=== PATIENT | male | born 1945 | race American Indian/Alaskan Native ===

== ENCOUNTER 2021-04-06 08:10 | Day surgery (SDC) | payer MEDICARE ==
[~2021-04-06 08:10] MED LIST: BACTERIOSTATIC SODIUM CHLORIDE 0.9% 30 ML VIAL INFILTRATI ONE; SODIUM CHLORIDE 0.9% 1000 ML 1,000 ML IV SCH
[2021-04-06] MEDS ORDERED: HEPARIN 10,000 UNITS/10 ML VIAL ONE (08:11)
[2021-04-06] MEDS ORDERED: PROTAMINE SULFATE 50 MG/5 ML INJ ONE (08:11)
[2021-04-06] MEDS ORDERED: LIDOCAINE (1%) 10 MG/1 ML VIAL 20 ML MDV ONE (08:11)
[2021-04-06] MEDS ORDERED: BUPIVACAINE/PF (0.25%) 2.5 MG/ML 30 ML VIAL INFILTRATI ONE (08:11)
[2021-04-06] MEDS ORDERED: THROMBIN (RECOMBINANT) 5,000 UNIT VIAL TP ONE ×2 (09:08→11:48)
--- NOTE | 2021-04-06 09:11 | Anesthesia Consultation ---
Anesthesia Consult and Med Hx Date of service: 04/06/21 - Airway Anesthetic Teeth Evaluation: Good ROM Head & Neck: Inadequate (restricted extension) Mental/Hyoid Distance: Adequate Mallampati Class: Class III Intubation Access Assessment: Possibly Difficult - Pre-Operative Health Status ASA Pre-Surgery Classification: ASA4 Proposed Anesthetic Plan: General - Pulmonary Hx Smoking: No Hx Respiratory Symptoms: No Hx Sleep Apnea: No - Cardiovascular System Hx Hypertension: Yes Hx Coronary Artery Disease: Yes (diastolic heart failure, no mention of systolic heart failure) Hx Heart Attack/AMI: No Hx Percutaneous Transluminal Coronary Angioplasty (PTCA): Yes (>5yrs ago) Hx Cardia Arrhythmia: Yes (parosyxmal a-fib; last dose eliquis 04/01/21) Hx Pacemaker: No Hx Internal Defibrillator: No - Central Nervous System Hx Seizures: Yes (last seizure 4yrs ago; took keppra this morning) 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 Preop cardiology eval on chart.
[2021-04-06 09:19] LABS: Hematocrit 33.8 % (35.5-45.6); Hemoglobin 11.6 gm/dl (11.8-15.2); Mean Corpuscular HGB Conc 34 % (32-34); Mean Corpuscular Volume 85 fl (84-94); Platelet Count 219 K/mm3 (140-440); Red Blood Count 3.97 M/mm3 (3.65-5.03); Red Cell Distribution Width 19.4 % (13.2-15.2)
[2021-04-06] MEDS ORDERED: ceFAZolin/STERILE WATER 2 GM/20 ML SYRINGE IV NR (09:28)
[2021-04-06] MEDS ORDERED: fentaNYL 100 MCG/2 ML INJ IV PRN (09:30)
[2021-04-06] MEDS ORDERED: ONDANSETRON 4 MG/2 ML INJ IV PRN (09:30)
[2021-04-06] MEDS ORDERED: HYDROcodone/ACETAMINOPHEN 5-325 MG TAB PO PRN (09:30)
[2021-04-06] MEDS ORDERED: fentaNYL 100 MCG/2 ML INJ ONE (09:32)
[2021-04-06] MEDS ORDERED: propofoL 200 MG/20 ML VIAL IV ONE ×2 (09:32→10:38)
[2021-04-06] MEDS ORDERED: LIDOCAINE MPF (2%) 20 MG/1 ML VIAL 5 ML ONE (09:32)
[2021-04-06 09:34] LABS: Calcium 9.4 mg/dL (8.4-10.2)
[2021-04-06] MEDS ORDERED: ePHEDrine SULFATE 50 MG/1 ML INJ ONE (10:07)
[2021-04-06] MEDS ORDERED: PHENYLEPHRINE/NS 1,000 MCG/10 ML SYRINGE (OR USE) IV ONE (10:12)
[2021-04-06] MEDS ORDERED: SODIUM CHLORIDE 0.9% IRR 1,500 ML BOTTLE IR ONE (11:47)
[2021-04-06] MEDS ORDERED: HEPARIN 10,000 UNITS/10 ML VIAL IV ONE (11:47)
[2021-04-06] MEDS ORDERED: ONDANSETRON 4 MG/2 ML INJ ONE (12:45)
--- NOTE | 2021-04-06 13:08 | Post Operative Note ---
Date of procedure: 04/06/21 Pre-op diagnosis: ESRD Post-op diagnosis: same Procedure: Left Femoral AV Loop Graft Insertion Anesthesia: GETA Surgeon: JOHANNE PAUL Estimated blood loss: other (25ml) Condition: stable Disposition: PACU
[2021-04-06] MEDS ORDERED: oxyCODONE /ACETAMINOPHEN 5-325MG TAB PO PRN (13:10)
--- NOTE | 2021-04-06 13:10 | Short Stay Summary ---
Short Stay Documentation Date of service: 04/06/21 - History H&P: obtained from office Past Medical History: atrial fib, CAD, ESRD, hypertension - Allergies and Medications Current Medications: Allergies No Known Allergies Allergy (Verified 03/23/21 13:29) Home Medications Medication Instructions Recorded Confirmed Last Taken Type Apixaban [Eliquis] 2.5 mg PO BID 05/18/18 04/06/21 04/01/21 History AtorvaSTATin [Lipitor] 20 mg PO QHS 05/18/18 03/23/21 04/05/21 History Brimonidine Tartrate [Brimonidine 1 drop OU BID 05/18/18 03/23/21 04/05/21 History Tartrate 0.2%] Metoprolol Tartrate 50 mg PO PRN PRN 05/18/18 03/23/21 04/05/21 History levETIRAcetam [Keppra ORAL LIQ] 750 mg PO BID 05/18/18 04/06/21 04/06/21 03:00 History Cinacalcet [Sensipar] 60 mg PO QDAY 03/23/21 04/06/21 04/05/21 History Folic Acid/Vit B Complex and C 800 mcg PO DAILY 03/23/21 03/23/21 04/05/21 History [Dialyvite 800 Chewable Wafer] Insulin NPH/Regular [Novolin 70/30] 10 unit SQ QAM 03/23/21 03/23/21 04/05/21 History Timolol Maleate/Pf [Timolol 1 each OU BID 03/23/21 03/23/21 04/05/21 History Maleate 0.5% Eye Drop] Active Medications Hydrocodone Bitart/Acetaminophen (Hydrocodone/Acetaminophen 5-325 Mg Tab) 1 each PO ONCE PRN PRN Reason: Pain, Moderate (4-6) Stop: 04/06/21 18:00 Cefazolin Sodium (Cefazolin/Sterile Water 2 Gm/20 Ml Syringe) 2 gm IV PREOP NR Stop: 04/06/21 20:00 Fentanyl (Fentanyl 100 Mcg/2 Ml Inj) 50 mcg IV Q5MIN PRN PRN Reason: Pain , Severe (7-10) Stop: 04/06/21 18:00 Sodium Chloride (Nacl 0.9% 1000 Ml) 1,000 mls @ 42 mls/hr IV DIRECT AFSHIN Stop: 04/06/21 23:59 Last Admin: 04/06/21 09:00 Dose: 42 mls/hr Documented by: Ondansetron HCl (Ondansetron 4 Mg/2 Ml Inj) 4 mg IV ONCE PRN PRN Reason: Nausea And Vomiting Stop: 04/06/21 18:00 - Physical exam General appearance: no acute distress Lungs: Normal air movement Heart: Regular rate Extremities: no ischemia - Hospital course Hospital course: the patient was taken to the operating room and had a left leg av graft insertion performed. please refer to the operative note concerning details of the procedure. the patient tolerated the procedure well and was discharged home in stable condition. - Disposition Condition at discharge: Stable Disposition: 01 HOME / SELF CARE / HOMELESS Short Stay Discharge Plan Follow up with: MOI VANG MD [Primary Care Provider] - 7 Days
--- NOTE | 2021-04-06 14:33 | Operative Report ---
DATE OF SURGERY: 04/06/2021 STAFF SURGEON: Dr. Geoff Le. PREOPERATIVE DIAGNOSIS: End-stage renal disease. POSTOPERATIVE DIAGNOSIS: End-stage renal disease. PROCEDURE PERFORMED: Left femoral arteriovenous loop graft insertion. COMPLICATIONS: None. ESTIMATED BLOOD LOSS: 25 mL. ANESTHESIA: General. INDICATIONS FOR PROCEDURE: This is a 75-year-old gentleman with end-stage renal disease, on hemodialysis, who is in need of a subsequent access due to his current access having issues with prolonged bleeding and cannulation issues and is unable to be salvaged. Therefore, the patient was suited to undergo access placed in the lower extremity. The patient was noted to have adequate arterial perfusion to the left leg and therefore was scheduled for a left femoral loop graft insertion. The patient was explained the risks, benefits and alternative of procedure, expressed understanding and wished to proceed. DESCRIPTION OF PROCEDURE: After appropriate consent was obtained, the patient was brought back to the operating room and placed on the operating table in supine position. The patient was given appropriate medication for general anesthesia, had LMA placed without difficulty. The left lower extremity was prepped and draped in the usual sterile fashion with ChloraPrep. Appropriate preoperative antibiotics were administered, and appropriate timeout was performed indicating the correct patient, procedure, and site of procedure. We then began the operation by making a longitudinal incision in the proximal medial thigh. This was carried through the subcutaneous tissue with combination of blunt dissection and electrocautery. The fascia overlying the sartorius muscle was incised. The sartorius muscle was then retracted laterally, which allowed us to expose the femoral vessels, femoral arteries, SFA and SFV were both found to be suitable for arterial inflow and venous outflow. These were both mobilized for appropriate distance both proximally and distally and controlled with a vessel loop. We then proceeded to make a counterincision in the mid thigh, was carried through the subcutaneous tissue with a combination of blunt dissection and electrocautery. We then proceeded to make a subcutaneous tunnel in a loop fashion bringing through a 6 mm bovine graft. Care was taken to avoid any twisting or kinking of the graft. The patient was then given 5000 units of unfractionated heparin. After appropriate timeout elapsed, the graft was spatulated. Vascular clamps were placed on the superior femoral artery, both proximally and distally. Longitudinal arteriotomy was made, extended with Wheatley scissors. An end-to-side anastomosis was performed with a running 6-0 Prolene suture. Once complete, flow was established through the graft, had a nice pulsatile flow. We then looked to place vascular clamps on the femoral vein. The longitudinal venotomy was performed which was extended with Wheatley scissors. Graft was cut to appropriate length and spatulated and then end-to-side anastomosis was performed with a running 5-0 Prolene suture. Once complete, flow was established through the graft with a nice palpable thrill. We then looked to obtain hemostasis along our suture lines, which were obtained with hemostatic agents. Of note, the arterial limb was lateral and was tunneled underneath the sartorius muscle. Once satisfied with hemostasis, we then proceeded to close the wound by approximating the fascia with interrupted 2-0 PDS and the deep subcutaneous layer was approximated with a running 3-0 PDS. The counterincision was closed with a deep subcutaneous layer with a 3-0 PDS and then both skin was approximated with lori. Appropriate dressing was placed. The patient tolerated the procedure well, emerged from the general anesthesia, had LMA removed and was sent to recovery in stable condition. All sponge, instrument and needle counts were correct at completion of the operation. TID: [id number] RECEIPT: [id number] VCN/PRE
[2021-04-06 16:38] VITALS: BP 130/51
== END 2021-04-06 14:46 | disposition home or self-care (01) ==
LOC: OR 08:10
PROVIDERS: ATTEND Surgery Vascular Surgery
DX: I12.0 Hypertensive chronic kidney disease with stage 5 chronic kidney disease or end stage renal disease (principal); N18.6 End stage renal disease; E11.22 Type 2 diabetes mellitus with diabetic chronic kidney disease; I25.10 Atherosclerotic heart disease of native coronary artery without angina pectoris; E78.00 Pure hypercholesterolemia, unspecified; K21.9 Gastro-esophageal reflux disease without esophagitis; Z99.2 Dependence on renal dialysis; Z79.4 Long term (current) use of insulin; Z79.899 Other long term (current) drug therapy; Z98.890 Other specified postprocedural states
CPT/HCPCS: 36415; 36830; 80048; 82962; 85027; 86850; 86900; 86901; C1768; J0690; J1644; J2370; J2405; J2704; J2720; J3010; J7030

== ENCOUNTER 2021-08-17 11:11 | Day surgery (SDC) | payer MEDICARE ==
[2021-08-17] MEDS ORDERED: SODIUM CHLORIDE 0.9% 1000 ML 1,000 ML ONE (11:19)
[2021-08-17 12:02] LABS: Mean Corpuscular HGB Conc 31 % (32-34); Mean Corpuscular Volume 85 fl (84-94); Platelet Count 238 K/mm3 (140-440); Red Blood Count 4.77 M/mm3 (3.65-5.03); Red Cell Distribution Width 18.7 % (13.2-15.2)
[2021-08-17 12:08] LABS: Hematocrit 40.6 % (35.5-45.6); Hemoglobin 12.5 gm/dl (11.8-15.2)
[2021-08-17 12:29] LABS: Calcium 9.3 mg/dL (8.4-10.2)
--- NOTE | 2021-08-17 12:39 | Anesthesia Day of Surgery ---
Anesthesia Day of Surgery - Day of Surgery Patient Examined: Yes Patient H&P Reviewed: Yes Patient is NPO: Yes
[2021-08-17] MEDS ORDERED: ONDANSETRON 4 MG/2 ML INJ IV PRN (12:41)
[2021-08-17] MEDS ORDERED: HYDROmorphone 1 MG/1 ML INJ IV PRN ×2 (12:41)
--- NOTE | 2021-08-17 12:41 | Anesthesia Consultation ---
Anesthesia Consult and Med Hx Date of service: 08/17/21 - Airway Anesthetic Teeth Evaluation: Good, Partials ROM Head & Neck: Adequate Mental/Hyoid Distance: Adequate Mallampati Class: Class III Intubation Access Assessment: Probably Good - Pre-Operative Health Status ASA Pre-Surgery Classification: ASA3 Proposed Anesthetic Plan: General - Pulmonary Hx Smoking: No Hx Respiratory Symptoms: No Hx Sleep Apnea: No - Cardiovascular System Hx Hypertension: Yes Hx Coronary Artery Disease: Yes (diastolic heart failure, no mention of systolic heart failure) Hx Heart Attack/AMI: No (Stent) Hx Percutaneous Transluminal Coronary Angioplasty (PTCA): Yes (>5yrs ago) Hx Cardia Arrhythmia: Yes (parosyxmal a-fib; last dose eliquis 04/01/21) Hx Pacemaker: No Hx Internal Defibrillator: No - Central Nervous System Hx Seizures: Yes 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
[2021-08-17] MEDS ORDERED: SODIUM CHLORIDE 0.9% 1000 ML 1,000 ML IV SCH (12:45)
[2021-08-17] MEDS ORDERED: ceFAZolin/Water 2 GM/20 ML 2 GM/20 ML SYRINGE IV ONE (12:47)
[2021-08-17] MEDS ORDERED: ceFAZolin/STERILE WATER 2 GM/20 ML SYRINGE IV NR (13:00)
[2021-08-17] MEDS ORDERED: propofoL 200 MG/20 ML VIAL IV ONE (13:27)
[2021-08-17] MEDS ORDERED: fentaNYL 100 MCG/2 ML INJ ONE (13:27)
[2021-08-17] MEDS ORDERED: ePHEDrine SULFATE 50 MG/1 ML INJ ONE (13:41)
[2021-08-17] MEDS ORDERED: HEPARIN 10,000 UNITS/10 ML VIAL ONE (13:52)
[2021-08-17] MEDS ORDERED: THROMBIN (RECOMBINANT) 5,000 UNIT VIAL TP ONE ×2 (13:53→14:45)
[2021-08-17] MEDS ORDERED: SODIUM CHLORIDE 0.9% 200 ML ONE (13:53)
[2021-08-17] MEDS ORDERED: MIDAZOLAM 2 MG/2 ML INJ ONE (14:04)
[2021-08-17] MEDS ORDERED: PROTAMINE SULFATE 50 MG/5 ML INJ ONE (14:42)
[2021-08-17] MEDS ORDERED: SODIUM CHLORIDE 0.9% 100 ML IVPB IV ONE (14:45)
[2021-08-17] MEDS ORDERED: SODIUM CHLORIDE 0.9% IRR 1,500 ML BOTTLE IR ONE (14:45)
[2021-08-17] MEDS ORDERED: HEPARIN 10,000 UNITS/10 ML VIAL IV ONE (14:45)
--- NOTE | 2021-08-17 15:05 | Post Operative Note ---
Date of procedure: 08/17/21 Pre-op diagnosis: ESRD Post-op diagnosis: same Procedure: Right Arm AV Graft Ligation Anesthesia: GETA Surgeon: JOHANNE PAUL Estimated blood loss: minimal Pathology: none Condition: stable Disposition: PACU
[2021-08-17] MEDS ORDERED: oxyCODONE /ACETAMINOPHEN 5-325MG TAB PO PRN (15:06)
--- NOTE | 2021-08-17 15:06 | Short Stay Summary ---
Short Stay Documentation Date of service: 08/17/21 - History H&P: dictated Past Medical History: ESRD, hypertension - Allergies and Medications Current Medications: Allergies No Known Allergies Allergy (Verified 07/18/21 15:54) Home Medications Medication Instructions Recorded Confirmed Last Taken Type Apixaban [Eliquis] 2.5 mg PO BID 05/18/18 08/17/21 08/12/21 17:00 History AtorvaSTATin [Lipitor] 20 mg PO QHS 05/18/18 08/17/21 08/16/21 20:00 History Brimonidine Tartrate [Brimonidine 1 drop OU BID 05/18/18 08/17/21 08/16/21 17:00 History Tartrate 0.2%] Metoprolol Tartrate 25 mg PO PRN PRN 05/18/18 08/09/21 04/05/21 History levETIRAcetam [Keppra ORAL LIQ] 750 mg PO BID 05/18/18 08/17/21 08/17/21 07:00 History Cinacalcet [Sensipar] 60 mg PO QDAY 03/23/21 08/17/21 08/16/21 09:00 History Folic Acid/Vit B Complex and C 800 mcg PO DAILY 03/23/21 08/17/21 08/16/21 09:00 History [Dialyvite 800 Chewable Wafer] Insulin NPH/Regular [NovoLIN 70/30] 10 unit SQ QAM 03/23/21 08/17/21 08/16/21 09:00 History Timolol Maleate/Pf [Timolol 1 each OU BID 03/23/21 08/17/21 08/16/21 17:00 History Maleate 0.5% Eye Drop] Amoxicillin [Trimox CAP] 500 mg PO BID 07/18/21 08/17/21 08/16/21 17:00 History Cholecalciferol Vit D3 [Vitamin D3 2,000 unit PO QDAY 07/18/21 08/17/21 08/16/21 09:00 History 1,000 UNIT TAB] megestroL [Megace] 20 mg PO DAILY 07/18/21 08/17/21 08/16/21 17:00 History Active Medications Cefazolin Sodium (Cefazolin/Sterile Water 2 Gm/20 Ml Syringe) 2 gm IV PREOP NR Stop: 08/17/21 23:00 Hydromorphone HCl (Hydromorphone 1 Mg/1 Ml Inj) 0.25 mg IV Q10MIN PRN PRN Reason: Pain, Moderate (4-6) Hydromorphone HCl (Hydromorphone 1 Mg/1 Ml Inj) 0.5 mg IV Q10MIN PRN PRN Reason: Pain , Severe (7-10) Sodium Chloride (Nacl 0.9% 1000 Ml) 1,000 mls @ 42 mls/hr IV DIRECT AFSHIN Last Admin: 08/17/21 12:55 Dose: 42 mls/hr Ondansetron HCl (Ondansetron 4 Mg/2 Ml Inj) 4 mg IV ONCE PRN PRN Reason: Nausea And Vomiting - Physical exam General appearance: no acute distress Lungs: Normal air movement Heart: Regular rate Extremities: no ischemia - Hospital course Hospital course: the patient was taken to the operating room and had a right arm av graft ligation performed. please refer to the operative note concerning details of the procedure. the patient tolerated the procedure well and was discharged home in stable condition. - Disposition Condition at discharge: Stable Disposition: 01 HOME / SELF CARE / HOMELESS Short Stay Discharge Plan Follow up with: MOI VANG MD [Primary Care Provider] - 7 Days
--- NOTE | 2021-08-17 16:12 | Operative Report ---
DATE OF SURGERY: 08/17/2021 STAFF SURGEON: Geoff Le MD PREOPERATIVE DIAGNOSIS: End-stage renal disease. POSTOPERATIVE DIAGNOSIS: End-stage renal disease. PROCEDURE PERFORMED: Right arm AV graft ligation. COMPLICATIONS: None. ESTIMATED BLOOD LOSS: Less than 10 mL. ANESTHESIA: General. INDICATIONS FOR PROCEDURE: This is a 76-year-old gentleman with end-stage renal disease, on hemodialysis, who recently required new access placed in the left thigh loop femoral graft due to a malfunctioning right arm AV graft that was also associated with aneurysmal degeneration. The patient's thigh graft has been working just fine with no issues and now the patient is scheduled to undergo ligation of his previous access. The patient was explained the risks, benefits and alternatives of procedure, expressed understanding and wished to proceed. DESCRIPTION OF PROCEDURE: The appropriate consent was obtained, the patient was brought back to the operating room and placed on the operating table in a supine position with the right arm extended. The patient was given appropriate medication for general anesthesia and had LMA placed without difficulty. The right arm was prepped and draped in the usual sterile fashion with ChloraPrep. Appropriate preoperative antibiotics were administered, and appropriate timeout was performed indicating correct patient, procedure, and site of the procedure. We then began the operation by making a transverse incision near the arterial anastomosis overlying the AV graft. This was carried through the subcutaneous tissue with a combination of blunt dissection and electrocautery. Upon further dissection, the AV graft was identified, controlled with a hemostat and then ligated with 0 silk ties x2. Once complete, there was no longer a thrill or pulse palpated in the proximal fistula. Therefore, we went to close the wound with a deep subcutaneous layer with interrupted 3-0 PDS and the skin was approximated with lori. The patient tolerated the procedure well, emerged from the general anesthesia, had the LMA removed and was sent to recovery in a stable condition. All sponge, instrument and needle counts were correct at completion of the operation. TID: [id number] RECEIPT: [id number] SHOLA/MELANIE/ODALIS SAMSON
--- NOTE | 2021-08-17 19:28 | Post Anesthesia Evaluation ---
- Post Anesthesia Evaluation Patient Participated: Yes Airway Patent: Yes Stable Respiratory Function: Yes Nausea/Vomiting: No Temp > 96.8F: Yes Pain Manageable: Yes Adequeate Hydration: Yes Anesthesia Complications: No Block Receding Appropriately: Not Applicable Patient on Ventilator: No
[2021-08-17 19:49] VITALS: BP 136/48
== END 2021-08-17 11:12 | disposition home or self-care (01) ==
LOC: OR 11:11
PROVIDERS: ATTEND Surgery Vascular Surgery
DX: N18.6 End stage renal disease (principal); I12.0 Hypertensive chronic kidney disease with stage 5 chronic kidney disease or end stage renal disease; E11.22 Type 2 diabetes mellitus with diabetic chronic kidney disease; T82.898A Other specified complication of vascular prosthetic devices, implants and grafts, initial encounter; I25.10 Atherosclerotic heart disease of native coronary artery without angina pectoris; E78.00 Pure hypercholesterolemia, unspecified; I48.91 Unspecified atrial fibrillation; K21.9 Gastro-esophageal reflux disease without esophagitis; Z96.651 Presence of right artificial knee joint; Z79.899 Other long term (current) drug therapy; Z79.4 Long term (current) use of insulin; Z98.41 Cataract extraction status, right eye; Z98.890 Other specified postprocedural states; Z95.5 Presence of coronary angioplasty implant and graft; Y83.8 Other surgical procedures as the cause of abnormal reaction of the patient, or of later complication, without mention of misadventure at the time of the procedure; Y92.89 Other specified places as the place of occurrence of the external cause
CPT/HCPCS: 36415; 37607; 80048; 82962; 85027; J0690; J1644; J2250; J2704; J3010; J3490; J7030; J7120; Q0162; J2720